=== PATIENT | female | born 1935 | race African-American/Black ===

== ENCOUNTER 2022-11-10 08:11 | Inpatient (IN) ==
[2022-11-10] MEDS ORDERED: SODIUM CHLORIDE 0.9% 500 ML IV STA (09:22)
[2022-11-10] MEDS ORDERED: ONDANSETRON 4 MG/2 ML VIAL IV STA (09:29)
[2022-11-10] MEDS ORDERED: MORPHINE 2 MG/1 ML SYRINGE IV STA (09:29)
[2022-11-10 09:43] LABS: Basophils % 0.2 % (0.0-0.8); Eosinophils % 0.3 % (0.00-10.9); Hematocrit 36.8 VOL% (35.7-47.0); Hemoglobin 12.1 GM/DL (12.0-16.0); Immature Granulocytes % 0.6 %; Immature Granulocytes Absolute 0.05 #; Lymphocytes % 11.4 % (21.3-54.2); Mean Corpuscular HGB Conc 32.9 GM/DL (32-36); Mean Corpuscular Volume 82.7 FL (87-102); Mean Platelet Volume 10.4 FL (9.6-12.0); Monocytes # 0.3 10*3/uL (0.11-0.8); Monocytes % 3.4 % (1.7-12.7); Neutrophils % 84.1 % (38.7-73.9); Platelet Count 237 T/CUMM (130-400); Red Blood Count 4.45 MC/CUMM (3.8-5.5); Red Cell Distribution Width 15.5 % (9.3-17.3); White Blood Count 8.9 T/CUMM (4-12)
[2022-11-10 09:53] LABS: INR 0.9; PT Patient Result 10.3 SECS (10.1-12.1); Partial Thromboplastin Time 25.1 SECS (23.7-32.9)
[2022-11-10 09:58] LABS: Albumin 3.6 G/DL (3.4-5.0); Bilirubin,Total 0.4 MG/DL (0.20-1.00); Calcium 10.1 MG/DL (8.5-10.1); Osmolality,Calculated 281.4 MOS/KG (273-304); Potassium 3.6 MMOL/L (3.5-5.1); Total Protein 6.7 G/DL (6.4-8.2)
[2022-11-10 10:08] LABS: Mucus,Urine Occasional /LPF (Occasional); RBC,Urine 1 /HPF (0-4)
[2022-11-10 10:09] LABS: Bilirubin,Urine Negative (Negative); Blood, Urine Trace mg/dL (Negative); Glucose,Urine (UA) Negative (Negative); Ketones,Urine Negative (Negative); Nitrite,Urine Negative (Negative); Protein,Urine Negative (Negative); Urine Appearance Clear (Clear); Urine Color Yellow (Yellow); Urine Specific Gravity 1.025 (1.001-1.035); Urine Urobilinogen 0.2 eU/dL (<2.0)
[2022-11-10] MEDS: MORPHINE 2 MG/1 ML SYRINGE IV PRN ×2 (10:34→21:54)
[2022-11-10] MEDS ORDERED: hydrALAZINE 20 MG/1 ML VIAL IV PRN (10:55)
[2022-11-10] MEDS: SODIUM CHLORIDE 0.9% 1,000 ML IV SCH (12:00)
[2022-11-10] MEDS ORDERED: DEXAMETHASONE 4 MG/1 ML VIAL ONE ×3 (13:11→14:33)
[2022-11-10] MEDS ORDERED: LIDOCAINE 1% 5 ML VIAL ONE (13:11)
[2022-11-10] MEDS ORDERED: ROPIVACAINE 0.5% 30 ML VIAL ONE (13:12)
[2022-11-10] MEDS ORDERED: FAMOTIDINE 20 MG TABLET PO ONE (13:14)
[2022-11-10] MEDS ORDERED: atenoloL 50 MG TABLET PO ONE (13:16)
[2022-11-10] MEDS ORDERED: propofoL 200 MG/20 ML VIAL IV ONE (13:17)
[2022-11-10] MEDS ORDERED: ONDANSETRON 4 MG/2 ML VIAL ONE (13:17)
[2022-11-10] MEDS ORDERED: ACETAMINOPHEN INJ 1,000 MG/100 ML VIAL IV ONE (13:17)
[2022-11-10] MEDS ORDERED: fentaNYL 100 MCG/2 ML VIAL ONE (13:17)
[2022-11-10] MEDS ORDERED: ROCURONIUM 50 MG/5 ML VIAL IV ONE (13:17)
[2022-11-10] MEDS ORDERED: LIDOCAINE 2% 5 ML VIAL ONE (13:17)
[2022-11-10] MEDS ORDERED: CLINDAMYCIN INJ 900 MG/50 ML PREMIX IV ONE (14:20)
[2022-11-10] MEDS ORDERED: PHENYLEPHRINE 1 MG/10 ML SYRINGE IV ONE ×2 (14:22→14:33)
[2022-11-10] MEDS ORDERED: ePHEDrine 50 MG/ML VIAL ONE (14:22)
[2022-11-10] MEDS ORDERED: GLYCOPYRROLATE 0.4 MG/2 ML VIAL ONE (15:20)
[2022-11-10] MEDS ORDERED: NEOSTIGMINE 10 MG/10 ML VIAL ONE (15:21)
[2022-11-10] MEDS ORDERED: SEVOFLURANE 1 UNIT/15 MINUTE INH ONE (15:53)
[2022-11-10] MEDS: ONDANSETRON 4 MG/2 ML VIAL IV PRN (21:53)
[2022-11-11 02:10] LABS: Hematocrit 34.6 VOL% (35.7-47.0); Hemoglobin 11.3 GM/DL (12.0-16.0); Immature Granulocytes % 0.5 %; Immature Granulocytes Absolute 0.05 #; Lymphocytes # 0.7 10*3/uL (1.4-4.0); Lymphocytes % 7.2 % (21.3-54.2); Mean Corpuscular HGB Conc 32.7 GM/DL (32-36); Mean Corpuscular Volume 83.4 FL (87-102); Mean Platelet Volume 10.4 FL (9.6-12.0); Monocytes # 0.4 10*3/uL (0.11-0.8); Monocytes % 4.1 % (1.7-12.7); Neutrophils % 88.2 % (38.7-73.9); Platelet Count 235 T/CUMM (130-400); Red Blood Count 4.15 MC/CUMM (3.8-5.5); Red Cell Distribution Width 15.7 % (9.3-17.3)
[2022-11-11 02:27] LABS: Albumin 3.4 G/DL (3.4-5.0); Bilirubin,Total 0.4 MG/DL (0.20-1.00); Calcium 9.6 MG/DL (8.5-10.1); Osmolality,Calculated 284.4 MOS/KG (273-304); Potassium 4.3 MMOL/L (3.5-5.1); Total Protein 6.1 G/DL (6.4-8.2)
[2022-11-11] MEDS: ONDANSETRON 4 MG/2 ML VIAL IV PRN (07:18)
[2022-11-11] MEDS: MORPHINE 2 MG/1 ML SYRINGE IV PRN ×3 (07:43→21:58)
[2022-11-11] MEDS: PANTOPRAZOLE 40 MG TABLET PO SCH (08:20)
[2022-11-11] MEDS: atenoloL 50 MG TABLET PO SCH (08:21)
[2022-11-11] MEDS: ALUMINUM/MAGNES/SIMETH MAX STR 30 ML UDCUP PO PRN ×2 (12:39→21:56)
[2022-11-11] MEDS: SODIUM CHLORIDE 0.9% 1,000 ML IV SCH ×2 (13:04→23:15)
[2022-11-11] MEDS: APIXABAN 2.5 MG TABLET PO SCH (21:55)
[2022-11-12 05:12] LABS: Basophils % 0.2 % (0.0-0.8); Eosinophils % 0.2 % (0.00-10.9); Hematocrit 30.3 VOL% (35.7-47.0); Hemoglobin 9.8 GM/DL (12.0-16.0); Immature Granulocytes % 0.5 %; Immature Granulocytes Absolute 0.05 #; Lymphocytes # 1.6 10*3/uL (1.4-4.0); Lymphocytes % 16.3 % (21.3-54.2); Mean Corpuscular HGB Conc 32.3 GM/DL (32-36); Mean Corpuscular Volume 84.9 FL (87-102); Mean Platelet Volume 11.4 FL (9.6-12.0); Monocytes # 0.8 10*3/uL (0.11-0.8); Monocytes % 8.1 % (1.7-12.7); Neutrophils % 74.7 % (38.7-73.9); Platelet Count 169 T/CUMM (130-400); Red Blood Count 3.57 MC/CUMM (3.8-5.5); Red Cell Distribution Width 15.9 % (9.3-17.3); White Blood Count 9.6 T/CUMM (4-12)
[2022-11-12 05:44] LABS: Calcium 9.2 MG/DL (8.5-10.1); Osmolality,Calculated 282.4 MOS/KG (273-304); Potassium 4.4 MMOL/L (3.5-5.1)
[2022-11-12] MEDS: atenoloL 50 MG TABLET PO SCH (08:18)
[2022-11-12] MEDS: APIXABAN 2.5 MG TABLET PO SCH ×2 (08:18→21:04)
[2022-11-12] MEDS: PANTOPRAZOLE 40 MG TABLET PO SCH (08:18)
[2022-11-12 08:35] LABS: Ferritin 100.1 ng/mL (8-252)
[2022-11-12 08:41] LABS: Folate 9.48 NG/ML (5.38-24.0)
[2022-11-12] MEDS: MORPHINE 2 MG/1 ML SYRINGE IV PRN (10:51)
[2022-11-12] MEDS: SODIUM CHLORIDE 0.9% 1,000 ML IV SCH (15:40)
[2022-11-12] MEDS: FERROUS SULFATE 325 MG TABLET PO SCH (16:58)
[2022-11-12] MEDS: ALUMINUM/MAGNES/SIMETH MAX STR 30 ML UDCUP PO PRN (21:04)
[2022-11-12] MEDS: DOCUSATE SODIUM 100 MG CAPSULE PO SCH (21:04)
[2022-11-13] MEDS: MORPHINE 2 MG/1 ML SYRINGE IV PRN ×2 (02:50→12:55)
[2022-11-13 05:43] LABS: Basophils % 0.3 % (0.0-0.8); Eosinophils % 0.2 % (0.00-10.9); Hematocrit 27.1 VOL% (35.7-47.0); Hemoglobin 8.5 GM/DL (12.0-16.0); Immature Granulocytes % 0.6 %; Immature Granulocytes Absolute 0.07 #; Lymphocytes # 1.9 10*3/uL (1.4-4.0); Lymphocytes % 16.5 % (21.3-54.2); Mean Corpuscular HGB Conc 31.4 GM/DL (32-36); Mean Platelet Volume 10.4 FL (9.6-12.0); Monocytes # 1.1 10*3/uL (0.11-0.8); Monocytes % 9.6 % (1.7-12.7); Neutrophils % 72.8 % (38.7-73.9); Platelet Count 157 T/CUMM (130-400); Red Blood Count 3.15 MC/CUMM (3.8-5.5); Red Cell Distribution Width 15.8 % (9.3-17.3); White Blood Count 11.5 T/CUMM (4-12)
[2022-11-13 06:29] LABS: Calcium 9.3 MG/DL (8.5-10.1); Osmolality,Calculated 278.5 MOS/KG (273-304); Potassium 4.9 MMOL/L (3.5-5.1)
[2022-11-13] MEDS: POLYETHYLENE GLYCOL POWDER 17 GM PACK PO SCH (08:43)
[2022-11-13] MEDS: atenoloL 50 MG TABLET PO SCH ×2 (08:44→08:50)
[2022-11-13] MEDS: PANTOPRAZOLE 40 MG TABLET PO SCH (08:44)
[2022-11-13] MEDS: FERROUS SULFATE 325 MG TABLET PO SCH ×2 (08:45→16:23)
[2022-11-13] MEDS: APIXABAN 2.5 MG TABLET PO SCH ×2 (08:47→21:31)
[2022-11-13] MEDS: DOCUSATE SODIUM 100 MG CAPSULE PO SCH ×2 (08:47→21:31)
[2022-11-13] MEDS: amLODIPine 5 MG TABLET PO SCH (09:05)
[2022-11-14] MEDS: DOCUSATE SODIUM 100 MG CAPSULE PO SCH ×2 (08:36→21:36)
[2022-11-14] MEDS: FERROUS SULFATE 325 MG TABLET PO SCH ×2 (08:36→18:23)
[2022-11-14] MEDS: PANTOPRAZOLE 40 MG TABLET PO SCH (08:37)
[2022-11-14] MEDS: amLODIPine 5 MG TABLET PO SCH (08:37)
[2022-11-14] MEDS: POLYETHYLENE GLYCOL POWDER 17 GM PACK PO SCH (08:37)
[2022-11-14] MEDS: APIXABAN 2.5 MG TABLET PO SCH (10:49)
[2022-11-14 14:07] LABS: Hematocrit 27.2 VOL% (35.7-47.0)
[2022-11-14] MEDS: MORPHINE 2 MG/1 ML SYRINGE IV PRN (15:20)
[2022-11-15 05:10] LABS: Basophils % 0.3 % (0.0-0.8); Eosinophils # 0.1 10*3/uL (0.0-0.87); Eosinophils % 0.9 % (0.00-10.9); Hematocrit 27.7 VOL% (35.7-47.0); Hemoglobin 8.9 GM/DL (12.0-16.0); Immature Granulocytes % 0.7 %; Immature Granulocytes Absolute 0.07 #; Lymphocytes # 2.4 10*3/uL (1.4-4.0); Mean Corpuscular HGB Conc 32.1 GM/DL (32-36); Mean Corpuscular Volume 84.5 FL (87-102); Mean Platelet Volume 10.9 FL (9.6-12.0); Monocytes # 1.2 10*3/uL (0.11-0.8); Monocytes % 11.4 % (1.7-12.7); Neutrophils % 63.7 % (38.7-73.9); Platelet Count 235 T/CUMM (130-400); Red Blood Count 3.28 MC/CUMM (3.8-5.5); Red Cell Distribution Width 15.6 % (9.3-17.3); White Blood Count 10.3 T/CUMM (4-12)
[2022-11-15 05:26] LABS: Calcium 9.9 MG/DL (8.5-10.1)
[2022-11-15] MEDS: amLODIPine 5 MG TABLET PO SCH (08:42)
[2022-11-15] MEDS: PANTOPRAZOLE 40 MG TABLET PO SCH (08:42)
[2022-11-15] MEDS: DOCUSATE SODIUM 100 MG CAPSULE PO SCH (08:42)
[2022-11-15] MEDS: FERROUS SULFATE 325 MG TABLET PO SCH (08:42)
[2022-11-15] MEDS: POLYETHYLENE GLYCOL POWDER 17 GM PACK PO SCH (08:42)
[2022-11-15] MEDS: APIXABAN 2.5 MG TABLET PO SCH (11:40)
[2022-11-15 12:00] VITALS: BP 122/59
== END 2022-11-15 14:35 | disposition swing bed (61) | DRG 522 ==
LOC: EDBD → EDUNIT# → N.ED 08:11 → N.EDINP 10:15 → N.3E 11:48
PROVIDERS: ADMIT Internal Medicine; ATTEND Internal Medicine